=== PATIENT | female | born 1935 | race Caucasian/White ===

== ENCOUNTER → 2021-11-09 10:14 | Outpatient (CLI) | payer OTHER, SELFPAY ==
--- NOTE | ~2021-11-09 | DEXA_ITS ---
Bone Density Report Name: GRACY BOYD Age: 85 Sex: Female Ethnicity: White Date of : 1935 Indication: postmenopausal osteoporosis; height loss; Referring Provider: HAYLEY HERNANDEZ Study: Bone densitometry was performed. Exam Date: November 09, 2021 Accession number: [id number] Bone Density: Region BMD T-score Z-score Classification AP Spine (L1-L4) 0.783 -2.4 0.5 Osteopenia World Health Organization criteria for BMD impression classify patients as: Normal (T-score at or above -1.0), Osteopenia (T-score between -1.0 and -2.5), or Osteoporosis (T-score at or below -2.5). Previous Exams: Region Exam Age BMD T-score BMD Change BMD Change Date g/cm2 vs Baseline vs Previous AP Spine(L1-L4) 11/09/2021 85 0.783 -2.4 0.058* 0.058* 03/05/2018 82 0.726 -2.9 *Denotes significance at 95% confidence level, LSC for AP Spine = 0.022 g/cm2 Clinical Information Provided by Patient: Has used the following medications: Vitamin D Patient maximum height was 61 Menopause Age: 50 No regular weight bearing exercise Drinks caffeinated beverages Onset of menses at age 12 Number of children 3 Impression: The patient has low bone mass, based on the Total Spine T-score. No significant bone loss was observed. Discussion: BONE DENSITY IS LOW AT ONE OR MORE SKELETAL SITES. This patient's lowest T-score is low at one or more skeletal sites. It meets the World Health Organization's (WHO) criteria for ?low bone mass? (T-score between -1.0 and -2.5). The patient's 10-year risk of fracture as calculated by FRAX is less than the threshold where pharmacological therapy is recommended by the National Osteoporosis Foundation (NOF). However, all treatment decisions require clinical judgment and consideration of individual patient factors, including patient preferences, comorbidities, previous drug use, risk factors not captured in the FRAX model (e.g., frailty, falls, vitamin D deficiency, increased bone turnover, interval significant decline in bone density) and possible under or overestimation of fracture risk by FRAX. The patient should follow a healthful lifestyle (good nutrition with adequate calcium and vitamin D, and appropriate weight-bearing exercise). Follow-Up: Consider repeating this study in 2 to 3 years to reassess this patient's status, or sooner if there is some new clinical indication. Reported by: MIRELLA on 11/09/2021 10:34:00 AM. Reviewed, dictated and finalized at location A. GERDA
== END ==
PROVIDERS: PCP Emergency Medicine; Visit Provider Emergency Medicine
DX: Z78.0 Asymptomatic menopausal state (principal); M85.88 Other specified disorders of bone density and structure, other site
CPT/HCPCS: 77080

== ENCOUNTER → 2023-06-27 11:49 | Outpatient (CLI) | payer OTHER, SELFPAY ==
--- NOTE | ~2023-06-27 | XR_ITS ---
EXAMINATION: XR hip BI 2V w AP pelvis DATE: 06/27/2023 12:15 INDICATION: Hip pain. TECHNIQUE: An anteroposterior view of the pelvis and 2 views of each hip were obtained. COMPARISON: Pelvis and hip radiographs 10/31/19 FINDINGS: There is a total right hip arthroplasty in near-anatomic alignment. There is a total left h ip arthroplasty in near-anatomic alignment. No fracture. No periprosthetic lucency to suggest looseni ng or infection. There is severe lumbar spondylosis. IMPRESSION: 1. Bilateral total hip arthroplasties in near-anatomic alignment. Reviewed, dictated and finalized at location E.
== END ==
PROVIDERS: PCP Emergency Medicine; Visit Provider Emergency Medicine
DX: M25.559 Pain in unspecified hip (principal); Z96.643 Presence of artificial hip joint, bilateral
CPT/HCPCS: 73521

== ENCOUNTER 2024-11-04 11:56 | Emergency (ER) | payer OTHER, SELFPAY ==
--- NOTE | ~2024-11-04 | XR_ITS ---
EXAMINATION: XR skull min 4V DATE: 11/04/2024 13:05 INDICATION: Head injury. TECHNIQUE: 4 views of the skull were obtained. COMPARISON: Head CT 02/06/2010 FINDINGS: Alignment is normal. No fracture. There is no abnormal lytic lesion. IMPRESSION: 1. Normal skull. Reviewed, dictated and finalized at location A. EAR MEDICINE OFFICER IMPRESSION: 1. Normal skull.
--- NOTE | ~2024-11-04 | XR_ITS ---
EXAMINATION: [id number] DATE: 11/04/2024 13:05 INDICATION: Left rib injury. TECHNIQUE: A frontal view of the chest and 2 views of the left ribs were obtained. COMPARISON: Chest 2 view 12/20/2013 FINDINGS: There is no pneumonia, pleural effusion, or pneumothorax. The heart size is normal. IMPRESSION: 1. No rib fracture. Reviewed, dictated and finalized at location A. T SEWER IMPRESSION: 1. No rib fracture.
[2024-11-04 12:09] VITALS: BP 184/98; PULSE 65; RESP 16; TEMP 36.6; O2SAT 98
--- NOTE | 2024-11-04 12:26 | ED.GENADULT ---
HPI - General Adult General Chief complaint: Upper Respiratory Infection Stated complaint: Flu Symptoms/Headache/Rib Pain Time Seen by Provider: 11/04/24 12:20 Source: patient, family, RN notes reviewed and old records reviewed Mode of arrival: ambulatory Limitations: no limitations History of Present Illness HPI narrative: 88 year old female accompanied by her daughters with complaints of pain to her left rib area and to the right occipital area of her skull from a fall which occurred a week ago at home. Patient reports that she had cold/flu symptoms and got up and fell hitting her left rib area on door frame and hit right occipital region of scalp on battery with LOC. Patiet reports that she is still having pain to the areas from fall. Patient reports no nausea or vomiting or any acute shortness of breath still some cough.. Patient reports that she has been taking Coricidin and some Tylenol for her cold flu symptoms. Patient reports no dizziness or tripping when fell just fell, does not take any blood thinners, no bruising or any redness noted to head or left chest area.. MD complaint: headache and left rib pain, continued cough Onset (ago): week(s) (1 week) Severity: moderate Treatments prior to arrival: other (Coricidian and Tylenol) Related Data Allergies Allergy/AdvReac Type Severity Reaction Status Date / Time No Known Drug Allergies Allergy unknown Verified 11/04/24 12:06 Review of Systems Review of Systems: CONSTITUTIONAL: Denies fever, chills, or sweats. EYES: Denies visual changes, redness, or discharge. ENT: Denies rhinorrhea, congestion, sore throat, or otalgia. CARDIOVASCULAR: Denies chest pain, palpitations, or edema.reports left lateral chest discomfort from fall RESPIRATORY: Reports cough denies dyspnea. GASTROINTESTINAL: Denies abdominal pain, nausea, vomiting, or diarrhea. GENITOURINARY: Denies dysuria or hematuria. SKIN: Denies rash or itching. MUSCULOSKELETAL: Denies back pain, joint pain, or myalgia. NEUROLOGIC: Denies acute headache, states discomfort to right lower occipital head pain from fall one week ago, no numbness, or weakness. PSYCHIATRIC: Denies anxiety or depression. 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) Family History Family History Father Family history of pancreatic cancer, Onset Age: 75 Mother Family history of lymphoma, Onset Age: 65 Other Family history of cardiovascular disease Family history of emphysema Family history of malignant neoplasm Social History Social History Smoking status: Never smoker Alcohol intake: never Substance use: never Do You Feel Safe in your Home?: Yes Lack of Transportation: No Lack of Food: Never True Current Housing: I Have Housing Concerned About Future Housing: No Difficulty Paying Gas/Electric Bills: No Difficulty Paying for Meds: No Currently Unemployed: No Education: High School Diploma/GED Difficulty w/ Childcare or Family Care: No Gender identity (if verbalized by the patient): Female Spiritual care concerns: No Agree to blood products: Yes Comments At time of signature, agree with nursing past medical, surgical, social and family history. There is no relevant family history pertinent to the presenting complaint Exam Narrative: GENERAL: Well-appearing, well-nourished, and in no acute distress. HEAD: Normocephalic, atraumatic. EYES: PERRLA and EOMI. ENT: Nares clear, no rhinorrhea or epistaxis. Mucous membranes moist.TM's normal, throat pink with no swelling NECK: Supple. no lymphadenopathy CHEST: Clear to auscultation. No respiratory distress. cough noted HEART: Regular rate and rhythm. No murmur heard. Normal peripheral pulses. discomfort along left lateral rib area from fall no bruising no shortness of breath some cogh noted. ABDOMEN: Soft, nontender, nondistended, normal active bowel sounds. EXTREMITIES: Normal range of motion. No edema. SKIN: Warm, dry, no rash. NEURO: No focal deficits. Alert and oriented x3. soreness to left occipital area region of fall with no bruising or swelling noted.denies dizziness Course Course Emergency Course: Patient is aware of diagnosis, understands and agrees to treatment plan.? Anticipatory guidance given.? Patient agrees to follow-up as directed and is aware of reasons to seek care at the emergency department. Portions of this record may have been created with voice recognition software Level of Care: Express Care Visit Vital Signs Vital signs: Vital Signs Temperature 36.6 C 11/04/24 12:09 Pulse Rate 65 11/04/24 12:09 Respiratory Rate 16 11/04/24 12:09 Blood Pressure 184/98 H 11/04/24 12:09 Pulse Oximetry 98 11/04/24 12:09 Temperature 36.6 C 11/04/24 12:09 Pulse Rate 65 11/04/24 12:09 Respiratory Rate 16 11/04/24 12:09 Blood Pressure 184/98 H 11/04/24 12:09 Pulse Oximetry 98 11/04/24 12:09 Reviewed Medical Decision Making MDM Narrative Medical decision making narrative: Exam findings and imaging show no acute concerns or changes; patient is non-toxic appearing and is in no distress.? Patient is appropriate for outpatient treatment and follow-up Differential Diagnosis Differential Diagnosis: URI, cough, left rib contusion, left rib fracture,concussion, occipital head pain Medical Records Medical records reviewed: Yes I reviewed the external patient's medical records. Vital Signs Vital Signs: Vital Signs Temperature 36.6 C 11/04/24 12:09 Pulse Rate 65 11/04/24 12:09 Respiratory Rate 16 11/04/24 12:09 Blood Pressure 184/98 H 11/04/24 12:09 Pulse Oximetry 98 11/04/24 12:09 Temperature 36.6 C 11/04/24 12:09 Pulse Rate 65 11/04/24 12:09 Respiratory Rate 16 11/04/24 12:09 Blood Pressure 184/98 H 11/04/24 12:09 Pulse Oximetry 98 11/04/24 12:09 Imaging Data Attestation: I personally reviewed and interpreted this imaging study as follows: My impression: chest x-ray: no rib fracture, skull no skull fracture Radiologist's impression: [facility] [address] [place] [address] [place] [address] XRay Report Signed Patient: Jo Ann Marte : 1935 MR#: [id number] Age: 88 Acct:[id number] Loc: [facility] ADM Date: 11/04/24Attending Dr: Ordering Physician: Shi Sánchez APRN Date of Service: 11/04/24 Procedure(s): XR ribs LT w PA CXR Accession Number(s): [id number] cc: Edwardo Mares MD; Shi Sánchez APRN~ EXAMINATION: [id number] DATE: 11/04/2024 13:05 INDICATION: Left rib injury. TECHNIQUE: A frontal view of the chest and 2 views of the left ribs were obtained. COMPARISON: Chest 2 view 12/20/2013 FINDINGS: There is no pneumonia, pleural effusion, or pneumothorax. The heart size is normal. IMPRESSION: 1. No rib fracture. Reviewed, dictated and finalized at location A. DENTIAL SALES CONSULTANT Please be advised this is a medical document. It is intended for [id number] communication. It is written in medical language and may contain unfamiliar abbreviations or verbiage. Medical documents are intended to carry relevant information, facts as evident, and the clinical opinion of the practitioner at the time of the encounter. This report may have been done utilizing a voice recognition system. Attempts have been made to correct errors. However, there may be uncorrected grammatical, spelling, and recognition errors present. The file time of this note does not necessarily represent the time of service. Dictated By: Michael Osman MD 11/04/24 1308 Signed By: <Electronically signed by Michael Osman MD in OV> [address] [place] [address] XRay Report Signed Patient: Jo Ann Marte : 1935 MR#: [id number] Age: 88 Acct:[id number] Loc: [facility] ADM Date: 11/04/24Attending Dr: Ordering Physician: Shi Sánchez APRN Date of Service: 11/04/24 Procedure(s): XR skull min 4V Accession Number(s): [id number] cc: Edwardo Mares MD; Shi Sánchez APRN~ EXAMINATION: XR skull min 4V DATE: 11/04/2024 13:05 INDICATION: Head injury. TECHNIQUE: 4 views of the skull were obtained. COMPARISON: Head CT 02/06/2010 FINDINGS: Alignment is normal. No fracture. There is no abnormal lytic lesion. IMPRESSION: 1. Normal skull. Reviewed, dictated and finalized at location A. DENTIAL SALES CONSULTANT Please be advised this is a medical document. It is intended for irqy-jj-mxyj communication. It is written in medical language and may contain unfamiliar abbreviations or verbiage. Medical documents are intended to carry relevant information, facts as evident, and the clinical opinion of the practitioner at the time of the encounter. This report may have been done utilizing a voice recognition system. Attempts have been made to correct errors. However, there may be uncorrected grammatical, spelling, and recognition errors present. The file time of this note does not necessarily represent the time of service. Dictated By: Michael Osman MD 11/04/24 1307 Signed By: <Electronically signed by Michael Osman MD in OV> Critical Care Time Critical Care Time Critical Care Time: No Discharge Plan Discharge Clinical Impression: Cough in adult patient Contusion of rib on left side Qualifiers: Encounter type: initial encounter Qualified Code(s): S20.212A - Contusion of left front wall of thorax, initial encounter Head injury Qualifiers: Encounter type: initial encounter Qualified Code(s): S09.90XA - Unspecified injury of head, initial encounter Patient Disposition: Home, Self-Care Condition: Stable Instructions: Head Injury (ED), Acute Cough (ED), Rib Contusion (ED) Additional Instructions: Increase fluids especially juices and water Hyjo-hlp-ltvwoia cough and cold medicine of your choice for your symptoms Zyrtec or Claritin daily include Coricidin brand decongestant recommend Delsym or Robitussin DM cough syrup heat to the face 20-30 minutes 4-6 times a day for pain Salt water gargles, throat lozenges or throat sprays as desired if any increase headache any dizziness or any changes in level of consciousness go directly to the emergency room If your symptoms persist, change or worsen significantly before you can contact your personal physician then please, without delay, go to the emergency department for further evaluation. Follow-up with PCP in 7-10 days or sooner if needed Follow up with PCP soon in regards to your blood pressure which is elevated above threshold for referral. Blood pressure above 120/80 may indicate pre-hypertension. 184/98 Patient Language: Ukrainian Prescriptions: No Action PreserVision AREDS-2 250-90-40-1 mg capsule 1 tablet PO BID Qty: 180 2RF cholecalciferol (vitamin D3) 50 mcg (2,000 unit) tablet 2,000 unit PO DAILY Qty: 90 2RF losartan 50 mg tablet 50 mg PO DAILY Qty: 90 2RF alendronate [Fosamax] 70 mg tablet 70 mg PO WEEKLY Qty: 12 2RF levothyroxine 25 mcg tablet See Rx Instructions .ROUTE .COMPLEX Qty: 90 3RF Dose Instruction: TAKE 1 TABLET BY MOUTH EVERY DAY Rx Instructions: TAKE 1 TABLET BY MOUTH EVERY DAY atorvastatin 20 mg tablet See Rx Instructions .ROUTE .COMPLEX Qty: 90 2RF Dose Instruction: TAKE 1 TABLET BY MOUTH EVERY DAY Rx Instructions: TAKE 1 TABLET BY MOUTH EVERY DAY Follow-up/Referrals: Edwardo Mares MD [Primary Care Provider] - Time of Disposition: 13:27 Quality [place] Coma Scale Eyes: Open Verbal: Oriented and Alert Motor: Follows Commands [place] Coma Total Score: 15
== END 2024-11-04 13:30 | disposition home or self-care (01) ==
PROVIDERS: Emergency Provider Registered Nurse; PCP Emergency Medicine
DX: R05.9 Cough, unspecified (principal); S20.212A Contusion of left front wall of thorax, initial encounter; S09.90XA Unspecified injury of head, initial encounter; W19.XXXA Unspecified fall, initial encounter; I10 Essential (primary) hypertension; E78.5 Hyperlipidemia, unspecified; E03.9 Hypothyroidism, unspecified; M19.90 Unspecified osteoarthritis, unspecified site; Z96.642 Presence of left artificial hip joint
CPT/HCPCS: 70260; 71101; 99214; G0463

== ENCOUNTER 2024-11-27 12:28 | Outpatient (CLI) | payer OTHER, SELFPAY ==
--- NOTE | ~2024-11-27 | CT_ITS ---
CT brain wo con Ordering provider: Edwardo Mares MD History: 88 years Female with . R51.9 - Headache, unspecified . Comparison: None. Technique: CT of the head without contrast. FINDINGS: BRAIN PARENCHYMA AND CSF SPACES: Mild leukoaraiosis and diffuse cortical atrophy. Mild atheromatous d isease. 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 No midline shift, mass effect or hemorrhag e. The brain parenchyma and CSF spaces are otherwise normal. VISUALIZED PARANASAL SINUSES: Well aerated. MASTOIDS: Well aerated. BONES: The bones appear intact. SOFT TISSUES: Visualized nasopharynx is normal. Superficial soft tissues are normal. IMPRESSION: No acute intracranial findings. Reviewed, dictated and finalized at location A. L SELECTOR
== END 2024-11-27 12:29 | disposition home or self-care (01) ==
PROVIDERS: PCP Emergency Medicine; Visit Provider Emergency Medicine
DX: R51.9 Headache, unspecified (principal)
CPT/HCPCS: 70450